=== PATIENT | male | born 1995 | race African-American/Black ===

== ENCOUNTER 2016-07-13 23:02 | Emergency (ER) | payer OTHER ==
[~2016-07-13] VITALS: Ht 188 cm; Wt 142.0 kg
[2016-07-13 23:04] VITALS: BP 164/96; PULSE 86; RESP 18; TEMP 98; O2SAT 97
--- NOTE | 2016-07-13 23:25 | PD ---
HPI Chief Complaint: Syncope/Near-Syncope Time Seen by Provider: 23:12 Travel History International Travel<30 days: No Contact w/Intl Traveler<30days: No Traveled to known affect area: No History of Present Illness HPI 21-year-old male complains of chest pain, generalized malaise and weakness, dizziness, numbness sensation on the arms and leg. Patient states that he had the feeling of almost passing out. Patient denies any headache. Patient denies any visual change. Patient denies any neck pain. Patient states that he has substernal sharp stabbing pain. Patient denies any pain radiation. Patient denies any nausea vomiting diarrhea. Patient denies any fever chills. Patient denies any back pain. Patient states that has generalized malaise and weakness of all extremity. Patient denies any alcohol or drug abuse. On a scale of 1-10 the pain is a 5. Patient denies history hypertension, diabetes, dyslipidemia. Patient is a nonsmoker. Patient states that he has been working outside in the heat all day. PFSH Past Medical History Medical History: Denies Significant Hx Tetanus Vaccination: > 5 Years Influenza Vaccination: No Past Surgical History Surgical History: No Previous Surgery Social History Alcohol Use: Yes (SOCIALLY) Tobacco Use: No Substance Use: No Allergies-Medications (Allergen,Severity, Reaction): Coded Allergies: Penicillin (Verified Allergy, Unknown, 07/13/16) Reported Meds & Prescriptions Reported Meds & Active Scripts Active No Active Prescriptions or Reported Medications Review of Systems General / Constitutional: No: Fever Eyes: No: Visual changes HENT: Positive: Lightheadedness, No: Headaches Cardiovascular: Positive: Chest Pain or Discomfort Respiratory: No: Shortness of Breath Gastrointestinal: No: Abdominal Pain Genitourinary: No: Dysuria Musculoskeletal: No: Pain Skin: No Rash Neurologic: No: Weakness Psychiatric: No: Depression Endocrine: No: Polydipsia Hematologic/Lymphatic: No: Easy Bruising Physical Exam Narrative GENERAL: Well-nourished, well-developed patient. SKIN: Warm and dry. HEAD: Normocephalic. EYES: No scleral icterus. No injection or drainage. NECK: Supple, trachea midline. No JVD or lymphadenopathy. CARDIOVASCULAR: Regular rate and rhythm without murmurs, gallops, or rubs. RESPIRATORY: Breath sounds equal bilaterally. No accessory muscle use. GASTROINTESTINAL: Abdomen soft, non-tender, nondistended. MUSCULOSKELETAL: No cyanosis, or edema. BACK: Nontender without obvious deformity. No CVA tenderness. Neurologic exam normal. Data Data Last Documented VS Vital Signs Date Time Temp Pulse Resp B/P Pulse Ox O2 Delivery O2 Flow Rate FiO2 07/14/16 01:11 90 18 171/92 98 Room Air 07/13/16 23:04 98.0 Orders Electrocardiogram (07/13/16 23:18) Complete Blood Count With Diff (07/13/16 23:18) Comprehensive Metabolic Panel (07/13/16 23:18) Creatine Kinase (Cpk) (07/13/16 23:18) Troponin I (07/13/16 23:18) Chest, Single Ap (07/13/16 23:18) Iv Access Insert/Monitor (07/13/16 23:18) Ecg Monitoring (07/13/16 23:18) Oximetry (07/13/16 23:18) Drug Screen, Random Urine (07/13/16 23:18) CKMB (07/13/16 23:30) CKMB% (07/13/16 23:30) Sodium Chlor 0.9% 1000 Ml Inj (Ns 1000 M (07/14/16 01:45) Labs Laboratory Tests Test 07/13/16 23:30 White Blood Count 7.6 TH/MM3 Red Blood Count 5.20 MIL/MM3 Hemoglobin 16.6 GM/DL Hematocrit 46.8 % Mean Corpuscular Volume 90.0 FL Mean Corpuscular Hemoglobin 32.0 PG Mean Corpuscular Hemoglobin 35.6 % Concent Red Cell Distribution Width 12.9 % Platelet Count 345 TH/MM3 Mean Platelet Volume 7.0 FL Neutrophils (%) (Auto) 42.6 % Lymphocytes (%) (Auto) 40.0 % Monocytes (%) (Auto) 8.4 % Eosinophils (%) (Auto) 8.1 % Basophils (%) (Auto) 0.9 % Neutrophils # (Auto) 3.3 TH/MM3 Lymphocytes # (Auto) 3.1 TH/MM3 Monocytes # (Auto) 0.6 TH/MM3 Eosinophils # (Auto) 0.6 TH/MM3 Basophils # (Auto) 0.1 TH/MM3 CBC Comment DIFF FINAL Differential Comment Sodium Level 139 MEQ/L Potassium Level 3.8 MEQ/L Chloride Level 103 MEQ/L Carbon Dioxide Level 26.4 MEQ/L Anion Gap 10 MEQ/L Blood Urea Nitrogen 13 MG/DL Creatinine 1.24 MG/DL Estimat Glomerular Filtration 90 ML/MIN Rate Random Glucose 127 MG/DL Calcium Level 8.7 MG/DL Total Bilirubin 0.7 MG/DL Aspartate Amino Transf 63 U/L (AST/SGOT) Alanine Aminotransferase 45 U/L (ALT/SGPT) Alkaline Phosphatase 64 U/L Total Creatine Kinase 2120 U/L Creatine Kinase MB 6.7 NG/ML Creatine Kinase MB % 0.3 % Troponin I LESS THAN 0.02 NG/ML Total Protein 7.9 GM/DL Albumin 4.1 GM/DL MDM Medical Decision Making Medical Screen Exam Complete: Yes Emergency Medical Condition: Yes Interpretation(s) Last Impressions Chest X-Ray 07/13/16 1249 Signed Impressions: Service Date/Time: Wednesday, July 13, 2016 23:49 - CONCLUSION: No acute disease. Jareth Jaeger Jr., MD 1:33 AM. CBC within normal limit. CMP within normal limit. Total CK 2120. Troponin normal. Differential Diagnosis Differential diagnosis including viral syndrome, anxiety, panic attack, angina, ME, PE, pneumothorax. Narrative Course 21-year-old male with chest pain, general malaise and weakness and dizziness and near-syncope. Normal saline solution 1 L IV bolus. Diagnosis Primary Impression: Atypical chest pain Additional Impression: Rhabdomyolysis Qualified Code: M62.82 - Non-traumatic rhabdomyolysis Patient Instructions: General Instructions Additional Instructions: Encourage by mouth fluids. Tylenol for pain. Follow-up with personal physician. Return if persistent problem or worse. Off work for 2 days. Med/Other Pt SpecificInfo: No Meds Exist/No RX given Scripts No Active Prescriptions or Reported Meds Disposition: 01 DISCHARGE HOME Condition: Stable Constantine Varghese MD Jul 13, 2016 23:24
[2016-07-13 23:37] VITALS: PULSE 88; RESP 18; O2SAT 98
[2016-07-13 23:39] VITALS: BP 145/89; PULSE 85; RESP 18; O2SAT 98
[2016-07-13 23:52] LABS: AUTOMATED NEUTROPHIL # 3.3 TH/MM3 (1.8-7.7); BASOPHIL # 0.1 TH/MM3 (0-0.2); BASOPHIL % 0.9 % (0.0-2.0); EOSINOPHIL # 0.6 TH/MM3 (0-0.4); EOSINOPHIL % 8.1 % (0.0-4.0); HEMATOCRIT 46.8 % (39.0-51.0); HEMO FLAGS DIFF FINAL; LYMPHOCYTE # 3.1 TH/MM3 (1.0-4.8); MEAN CORPUSCULAR HGB CONC 35.6 % (32.0-36.0); MONO % 8.4 % (0.0-8.0); NEUT % 42.6 % (16.0-70.0); PLATELET COUNT 345 TH/MM3 (150-450); RED CELL DISTRIBUTION WIDTH 12.9 % (11.6-17.2); WHITE BLOOD COUNT 7.6 TH/MM3 (4.0-11.0)
--- NOTE | 2016-07-14 00:10 | RADRPT ---
EXAM DATE/TIME: 07/13/2016 23:49 [facility] COMPARISON: No previous studies available for comparison. INDICATIONS : Intermittent chest pain. MEDICAL HISTORY : None. SURGICAL HISTORY : None. ENCOUNTER: Initial ACUITY: 1 day PAIN SCORE: 6/10 LOCATION: Bilateral chest FINDINGS: 2 frontal views of the chest demonstrate the lungs to be symmetrically aerated without evidence of ma ss, infiltrate or effusion. The cardiomediastinal contours are unremarkable. Osseous structures are intact. CONCLUSION: No acute disease. Jareth Jaeger Jr., MD on July 14, 2016 at 0:07 Board Certified Radiologist. This report was verified electronically.
[2016-07-14 00:33] LABS: ALKALINE PHOSPHATASE 64 U/L (45-117); ALT (GPT) 45 U/L (9-52); ANION GAP 10 MEQ/L (5-15); AST (GOT) 63 U/L (15-39); BICARBONATE 26.4 MEQ/L (21.0-32.0); BLOOD UREA NITROGEN 13 MG/DL (7-18); CHLORIDE 103 MEQ/L (98-107); CREATINE KINASE 2120 U/L (39-308); GLOMERULAR FILTRATION RATE 90 ML/MIN (>89); SODIUM (NA) 139 MEQ/L (136-145); TOTAL BILIRUBIN ADULT 0.7 MG/DL (0.2-1.0)
[2016-07-14 00:35] LABS: POTASSIUM 3.8 MEQ/L (3.5-5.1)
[2016-07-14 00:47] LABS: CKMB 6.7 NG/ML (0.5-3.6)
[2016-07-14 01:11] VITALS: BP 171/92; PULSE 90; RESP 18; O2SAT 98
[2016-07-14] MEDS ORDERED: SODIUM CHLOR 0.9% 1000 ML INJ 1,000 ML IV ONE (01:45)
[2016-07-14 01:55] VITALS: BP 184/79; PULSE 93; RESP 18; O2SAT 97
--- NOTE | 2016-07-14 17:21 | EKG ---
Date Performed: 07/13/2016 Time Performed: 23:18:58 PTAGE: 21 years EKG: Sinus rhythm NORMAL ECG NO PREVIOUS TRACING DOCTOR: Julio Piper Interpretating Date/Time 07/14/2016 17:21:00
== END 2016-07-14 02:51 | disposition home or self-care (01) ==
LOC: NEPE 23:02
DX: R07.89 Other chest pain (principal); M62.82 Rhabdomyolysis
CPT/HCPCS: 71010; 80053; 82550; 82552; 84484; 85025; 93005; 96360; 99285; J7030